=== PATIENT | female | born 1985 | race Caucasian/White ===

== ENCOUNTER 2017-04-27 10:59 | Emergency (ER) | payer MEDICAID ==
[~2017-04-27] VITALS: Ht 152.4 cm; Wt 69.5 kg
[2017-04-27 11:18] VITALS: BP 122/78
== END 2017-04-27 11:46 | disposition home or self-care (01) ==
LOC: ED 10:59
DX: L23.9 Allergic contact dermatitis, unspecified cause (principal)
CPT/HCPCS: J7512; Q0163

== ENCOUNTER 2017-09-16 17:38 | Inpatient (IN) | payer MEDICAID ==
[~2017-09-16] VITALS: Ht 157.5 cm; Wt 69.6 kg
[2017-09-16 20:06] LABS: BASOPHIL % 0.3 % (0-2); PLATELET COUNT 294 x10^3mcL (130-400); RED CELL DISTRIBUTION WIDTH 13.1 % (11.5-14.5)
[2017-09-16 20:13] LABS: CARBON DIOXIDE 25.9 mmol/L (21-32); CHLORIDE SERUM 104 mmol/L (98-107); CREATININE SERUM 0.8 mg/dL (0.6-1.0); GFR1 > 60 mL/min; GLUCOSE SERUM 113 mg/dL (74-106); POTASSIUM SERUM 3.7 mmol/L (3.5-5.1); SODIUM SERUM 140 mmol/L (136-145)
[2017-09-16 20:27] LABS: ALBUMIN 3.9 g/dL (3.4-5.0); ALKALINE PHOSPHATASE 95 U/L (46-116); ALT/SGPT 19 U/L (14-59); AST/SGOT 15 U/L (15-37); BILIRUBIN TOTAL 0.41 mg/dL (0.20-1.00); LIPASE 161 IU/L (73-393); TOTAL PROTEIN, SERUM 7.8 g/dL (6.4-8.2)
[2017-09-16 22:34] VITALS: BP 98/57
[2017-09-16 22:46] LABS: MAGNESIUM 1.8 mg/dL (1.8-2.4); PHOSPHOROUS 3.9 mg/dL (2.5-4.9)
[2017-09-16 22:52] LABS: FREE THYROXINE INDEX 2.9 ug/dL (1.4-4.5); T4(THYROXINE) 8.6 ug/dL (4.7-13.3)
[2017-09-16 22:55] LABS: T3 TOTAL 1.2 ng/mL
[2017-09-17 00:57] LABS: microscopic required? NO
[2017-09-17 01:37] LABS: UA SPECIFIC GRAVITY <=1.005 (1.005-1.035); urine erythrocyte NEGATIVE (NEGATIVE)
[2017-09-17 01:49] LABS: AMPHETAMINE QUAL UR NONE DETECTED (NEG <=1000)
[2017-09-17 05:27] VITALS: BP 110/74
[2017-09-17 06:30] LABS: BASOPHIL % 0.3 % (0-2); PLATELET COUNT 248 x10^3mcL (130-400); RED CELL DISTRIBUTION WIDTH 13.1 % (11.5-14.5)
[2017-09-17 07:08] LABS: CALCIUM 8.1 mg/dL (8.5-10.1); CARBON DIOXIDE 27.4 mmol/L (21-32); CHLORIDE SERUM 106 mmol/L (98-107); CHOLESTEROL 137 mg/dL (<200); CHOLESTEROL/HDL RATIO 3.2; CREATININE SERUM 0.8 mg/dL (0.6-1.0); GFR1 > 60 mL/min; GLUCOSE SERUM 98 mg/dL (74-106); HDL CHOLESTEROL 43 mg/dL (40-60); POTASSIUM SERUM 3.6 mmol/L (3.5-5.1); SODIUM SERUM 144 mmol/L (136-145); TRIGLYCERIDES 86 mg/dL (<150)
[2017-09-17 10:15] VITALS: BP 125/84
[2017-09-17 12:45] VITALS: BP 99/64
[2017-09-17 16:40] VITALS: BP 110/69
[2017-09-17 20:23] VITALS: BP 114/68
[2017-09-18 04:59] VITALS: BP 95/60
[2017-09-18 06:26] LABS: CALCIUM 7.7 mg/dL (8.5-10.1); CARBON DIOXIDE 26.4 mmol/L (21-32); CHLORIDE SERUM 109 mmol/L (98-107); CREATININE SERUM 0.7 mg/dL (0.6-1.0); GFR1 > 60 mL/min; GLUCOSE SERUM 95 mg/dL (74-106); MAGNESIUM 2.1 mg/dL (1.8-2.4); POTASSIUM SERUM 3.5 mmol/L (3.5-5.1); SODIUM SERUM 144 mmol/L (136-145)
[2017-09-18 06:53] LABS: BASOPHIL % 0.3 % (0-2); PLATELET COUNT 260 x10^3mcL (130-400); RED CELL DISTRIBUTION WIDTH 13.4 % (11.5-14.5)
[2017-09-18 09:55] VITALS: BP 100/61
[2017-09-18] MEDS ORDERED: COLACE100 MG PO (11:28)
[2017-09-18] MEDS ORDERED: ONDANSETRON4 M3 PO (11:28)
[2017-09-18] MEDS ORDERED: NATURAL IRON65 MG PO (11:28)
[2017-09-18] MEDS ORDERED: OSCD PO (11:29)
[2017-09-18] MEDS ORDERED: VITAMIN C PURE500 M1 PO (11:29)
[2017-09-18] MEDS ORDERED: NORCO1 TA2 PO (11:30)
[2017-09-18 12:45] VITALS: BP 103/58
[2017-09-18 15:58] VITALS: BP 103/58
[2017-09-18 17:30] VITALS: BP 105/62
== END 2017-09-18 17:54 | disposition home or self-care (01) | DRG 225 ==
LOC: ED 17:38 → MU 21:09 → DU 21:09 → MU 09-18 10:47
PROVIDERS: Emergency Medicine; Family Medicine; Surgery
PROC: 0DTJ4ZZ Resection of Appendix, Percutaneous Endoscopic Approach (ICD-10-PCS; principal; 2017-09-17 07:30)
DX: K35.80 Unspecified acute appendicitis (principal); K42.9 Umbilical hernia without obstruction or gangrene; Z68.28 Body mass index [BMI] 28.0-28.9, adult
CPT/HCPCS: 84439; 94150; J0330; J0696; J1170; J1885; J2405; J2543; J2704; J2710; J3010; J3490; J7030; J7120; Q0092; Q0162

== ENCOUNTER 2018-02-13 09:24 | Emergency (ER) | payer MEDICAID ==
[~2018-02-13] VITALS: Ht 152.4 cm; Wt 71.7 kg
[~2018-02-13 09:24] MED LIST: COLACE100 MG PO; NATURAL IRON65 MG PO; NORCO1 TA2 PO; ONDANSETRON4 M3 PO; OSCD PO; VITAMIN C PURE500 M1 PO
[2018-02-13 11:46] VITALS: BP 114/80
== END 2018-02-13 11:46 | disposition home or self-care (01) ==
LOC: ED 09:24
DX: R07.89 Other chest pain (principal)
CPT/HCPCS: J1885

== ENCOUNTER 2018-05-01 16:36 | Emergency (ER) | payer MEDICAID ==
[~2018-05-01] VITALS: Ht 165.1 cm; Wt 72.2 kg
[2018-05-01 17:05] VITALS: Ht 165.1 cm; Wt 72.2 kg
[2018-05-01 17:53] LABS: CALCIUM 8.4 mg/dL (8.5-10.1); CARBON DIOXIDE 27.4 mmol/L (21-32); CHLORIDE SERUM 105 mmol/L (98-107); CREATININE SERUM 0.7 mg/dL (0.6-1.0); GFR1 > 60 mL/min; GLUCOSE SERUM 95 mg/dL (74-106); POTASSIUM SERUM 3.5 mmol/L (3.5-5.1); SODIUM SERUM 138 mmol/L (136-145)
[2018-05-01 18:06] LABS: BASOPHIL % 0.2 % (0-2); PLATELET COUNT 289 x10^3mcL (130-400); RED CELL DISTRIBUTION WIDTH 13.2 % (11.5-14.5)
[2018-05-01 18:37] VITALS: BP 108/70
== END 2018-05-01 18:37 | disposition home or self-care (01) ==
LOC: ED 16:36
PROVIDERS: Emergency Medicine
DX: R51 Headache (principal); R11.0 Nausea; R42 Dizziness and giddiness
CPT/HCPCS: J1200; J1885; J2765

== ENCOUNTER 2018-11-18 12:04 | Emergency (ER) | payer MEDICAID ==
[~2018-11-18] VITALS: Ht 157.5 cm; Wt 72.6 kg
[2018-11-18 14:22] VITALS: BP 122/80
== END 2018-11-18 14:22 | disposition home or self-care (01) ==
LOC: ED 12:04
DX: M79.18 Myalgia, other site (principal); R07.89 Other chest pain; M54.6 Pain in thoracic spine